=== PATIENT | male | born 1945 | race Caucasian/White ===

== ENCOUNTER → 2021-11-17 | Day surgery (SDC) | payer OTHER ==
[2021-11-13 15:31] LABS: BASOPHILS % 0.3 % (0.0-1.0); EOSINOPHILS # (AUTO) 0.1 (0.0-0.4); EOSINOPHILS % 1.8 % (0.0-6.0); HEMATOCRIT 35.2 % (38.2-49.6); HEMOGLOBIN 11.4 g/dL (14.0-18.0); LYMPHOCYTES # (AUTO) 1.3 (1.0-3.2); LYMPHOCYTES % 16.9 % (18.0-39.1); MEAN CORPUSCULAR HGB CONC 32.4 g/dL (31-35); MEAN CORPUSCULAR VOLUME 92.6 fL (81-99); MONOCYTES # (AUTO) 0.7 (0.2-0.8); MONOCYTES % 9.6 % (4.4-11.3); NEUTROPHILS # (AUTO) 5.5 (2.1-6.9); NEUTROPHILS % 71.1 % (38.7-80.0); PLATELET COUNT 273 x10e3/uL (140-360); RED CELL DISTRIBUTION WIDTH 12.9 % (11.7-14.4)
[~2021-11-17] MED LIST: ATORVASTATIN CA20 MG PO; CRESTOR10 MG PO; ELIQUIS5 MG PO; FLECAINIDE ACE100 MG PO; LISINOPRIL10 MG PO; OTEZLA30 MG PO; OZEMPIC0.25 MG/0. SC; TIADYLT ER360 MG PO
[2021-11-17 13:15] VITALS: BP 137/75
== END ==
LOC: OR 09:21
PROVIDERS: ATTEND Internal Medicine Gastroenterology
DX: K63.5 Polyp of colon (principal); K52.9 Noninfective gastroenteritis and colitis, unspecified; K57.30 Diverticulosis of large intestine without perforation or abscess without bleeding; R15.2 Fecal urgency; R63.4 Abnormal weight loss; R19.7 Diarrhea, unspecified
CPT/HCPCS: 0223U; 36415; 45380; 45385; 83993; 85025; 87045; 87177; 87324; 87328; 87449; 88305; 93005; 45378